=== PATIENT | male | born 1965 | race Caucasian/White ===

== ENCOUNTER → 2016-05-17 | Outpatient (CLI) | payer OTHER ==
[~2016-05-17] VITALS: Ht 175.3 cm; Wt 86.2 kg
[~2016-05-17] MED LIST: ASPI81TA85 PO; CALC500T49 PO; CHRO500T4 PO; CINN500C9 PO; JANU50TA22 PO; LIDOCAINE 2% INJ 100 MG/5 ML SDV (FOR ANES.) As Ordered ONE; NS 1,000 ML IV SCH; OMEGCAP9 PO; PROPOFOL 200 MG/20 ML VIAL As Ordered ONE; ST J150C2 PO; TRIC145T PO
--- NOTE | 2016-05-17 10:58 | ROOR ---
Patient Name: Morgan Short Procedure Date: 05/17/2016 10:40 AM Date of : 1965 Age: 50 Room: [facility] Gender: Male Note Status: Finalized Procedure: Colonoscopy Indications: Screening for colorectal malignant neoplasm Providers: Sudhir CONTEH MD Referring MD: HERMILO AKHTAR MD Requesting Provider: Medicines: Monitored Anesthesia Care Complications: No immediate complications. Procedure: Pre-Anesthesia Assessment: - The heart rate, respiratory rate, oxygen saturations, blood pressure, adequacy of pulmonary ventilation, and response to care were monitored throughout the procedure. The Colonoscope was introduced through the anus and advanced to the cecum, identified by appendiceal orifice and ileocecal valve. The colonoscopy was performed without difficulty. The patient tolerated the procedure well. The quality of the bowel preparation was good. Findings: The perianal and digital rectal examinations were normal. (Exam: Complete, Prep: Good or Excellent.) A few small-mouthed diverticula were found in the sigmoid colon. The entire examined colon appeared normal on direct and retroflexion views. Impression: - (Exam: Complete, Prep: Good or Excellent.) - A few small scattered sigmoid diverticula and small internal hemorrhoids. - The entire colon is normal on direct and retroflexion views. - No specimens collected. Recommendation: - Repeat colonoscopy in 10 years for screening purposes. Sudhir Conteh MD Sudhir CONTEH MD 05/17/2016 10:57:44 AM This report has been signed electronically. Number of Addenda: 0 Note Initiated On: 05/17/2016 10:40 AM Estimated Blood Loss: Estimated blood loss: none.
[2016-05-17 11:26] VITALS: BP 154/85
== END ==
LOC: M OPP 08:56
PROVIDERS: ATTEND Internal Medicine Gastroenterology
DX: Z12.11 Encounter for screening for malignant neoplasm of colon (principal); K57.30 Diverticulosis of large intestine without perforation or abscess without bleeding; E11.9 Type 2 diabetes mellitus without complications; E78.5 Hyperlipidemia, unspecified; Z79.82 Long term (current) use of aspirin; Z79.899 Other long term (current) drug therapy

== ENCOUNTER 2019-09-23 20:42 | Emergency (ER) | payer OTHER ==
[~2019-09-23] VITALS: Ht 175.3 cm; Wt 80.4 kg
[~2019-09-23 20:42] MED LIST changes: -LIDOCAINE 2% INJ 100 MG/5 ML SDV (FOR ANES.) As Ordered ONE; -NS 1,000 ML IV SCH; -PROPOFOL 200 MG/20 ML VIAL As Ordered ONE; -TRIC145T PO; +TRIC145T22 PO
[2019-09-23] MEDS ORDERED: BETA250027 PO (21:00)
[2019-09-23] MEDS ORDERED: ASPIRIN 325 MG TAB PO ONE (21:45)
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
[2019-09-23 23:15] VITALS: BP 126/82
== END 2019-09-23 23:34 | disposition home or self-care (01) ==
LOC: M ED 20:42
DX: Z04.1 Encounter for examination and observation following transport accident (principal); V23.4XXA Motorcycle driver injured in collision with car, pick-up truck or van in traffic accident, initial encounter; Y92.410 Unspecified street and highway as the place of occurrence of the external cause; R91.8 Other nonspecific abnormal finding of lung field; E11.9 Type 2 diabetes mellitus without complications; Z79.899 Other long term (current) drug therapy; Z79.82 Long term (current) use of aspirin